=== PATIENT | female | born 2000 | race Caucasian/White ===

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

== ENCOUNTER 2021-08-11 23:39 | Emergency (ER) | payer OTHER ==
[~2021-08-11] VITALS: Ht 157.5 cm; Wt 56.8 kg
[~2021-08-11 23:39] MED LIST: PREDNISONE20 MG PO; VENTOLIN0.09 MG IH
[2021-08-12 01:25] VITALS: BP 106/65; PULSE 78; TEMP 98.8
== END 2021-08-12 01:25 | disposition home or self-care (01) ==
LOC: COL.ER 23:39
DX: J10.1 Influenza due to other identified influenza virus with other respiratory manifestations (principal); Z20.822 Contact with and (suspected) exposure to COVID-19